=== PATIENT | male | born 1985 | race Caucasian/White ===

== ENCOUNTER 2021-06-24 08:51 | Inpatient (IN) ==
[2021-06-24 09:49] LABS: BASOPHILS % (AUTO) 0.4 % (0.2-1.0); EOSINOPHILS % (AUTO) 0.3 % (0.9-2.9); HEMATOCRIT 47.6 % (42.0-54.0); HEMOGLOBIN 16.5 g/dL (13.5-18.0); LYMPHOCYTES # (AUTO) 0.7 X10^3/uL (1.3-2.9); LYMPHOCYTES % (AUTO) 9.6 % (21.0-51.0); MEAN CORPUSCULAR HEMOGLOBIN 30.8 pg (27.0-34.0); MEAN CORPUSCULAR HGB CONC 34.7 g/dL (33.0-35.0); MEAN CORPUSCULAR VOLUME 88.6 fL (80.0-100.0); MEAN PLATELET VOLUME 7.5 fL (7.4-11.0); MONOCYTES # (AUTO) 0.7 x10^3/uL (0.3-0.8); MONOCYTES % (AUTO) 8.8 % (0.0-13.0); NEUTROPHILS # (AUTO) 6.3 x10^3/uL (2.2-4.8); NEUTROPHILS % (AUTO) 80.9 % (42.0-75.0); PLATELET COUNT 282 X10^3/uL (150.0-450.0); RED BLOOD COUNT 5.37 X10^6/uL (4.7-6.0); RED CELL DISTRIBUTION WIDTH 13.3 % (11.6-16.5); WHITE BLOOD COUNT 7.7 X10^3/uL (3.6-10.0)
--- NOTE | 2021-06-24 09:50 | RAD ---
HISTORYCOVID INFUSION, COUGH, FEVERSTUDYCHEST, PA/LAT ADULTCOMPARISONNoneTECHNIQUEAP view of the chestFINDINGSCardiac and mediastinal contours are within normal limits. Moderate bilateral airspace opacities worst in the peripheral mid to lower lungs. No definite pleural effusion or pneumothorax.IMPRESSIONModerate airspace opacities consistent with COVID 19.Electronically signed by: Ben Rubalcava (Jun 24, 2021 09:49:11)
[2021-06-24 09:55] LABS: BLOOD UREA NITROGEN 19 mg/dL (7-18); CALCIUM 9.2 mg/dL (8.5-10.1); CARBON DIOXIDE 29.5 mmol/L (21-32); CHLORIDE 100 mmol/L (98-107); CREATININE 1.09 mg/dL (0.70-1.30); SODIUM 139 mmol/L (136-145); eGFR NON BLACK RACES > 60 (>60)
[2021-06-24] MEDS ORDERED: BENADRYL INJ 50 MG VIAL IV ONE (11:03)
[2021-06-24] MEDS ORDERED: SOLU-Medrol 125 MG VIAL IVP ONE (11:03)
[2021-06-24] MEDS ORDERED: TYLENOL 325 MG TAB PO ONE (11:03)
[2021-06-24] MEDS ORDERED: REMDESIVIR 200 MG in NS 100 ML IV 140 ML IV ONE (11:03)
[2021-06-24] MEDS ORDERED: NS 250 ML IV 250 ML IV ONE (11:10)
[2021-06-24] MEDS ORDERED: REMDESIVIR IV ONE (11:10)
[2021-06-24 12:24] VITALS: BMI 27.2
[2021-06-24] MEDS ORDERED: PHARMACY CONSULT - IVERMECTIN XX SCH (16:36)
[2021-06-24] MEDS: BROVANA IN SCH ×2 (17:42→20:30)
[2021-06-24] MEDS: PULMICORT NEB TX 0.5 MG NEB SCH ×2 (17:42→20:30)
[2021-06-24 18:00] LABS: BASOPHILS % (AUTO) 0.2 % (0.2-1.0); HEMATOCRIT 43.7 % (42.0-54.0); HEMOGLOBIN 15.2 g/dL (13.5-18.0); LYMPHOCYTES # (AUTO) 0.4 X10^3/uL (1.3-2.9); LYMPHOCYTES % (AUTO) 10.9 % (21.0-51.0); MEAN CORPUSCULAR HEMOGLOBIN 30.8 pg (27.0-34.0); MEAN CORPUSCULAR HGB CONC 34.8 g/dL (33.0-35.0); MEAN CORPUSCULAR VOLUME 88.4 fL (80.0-100.0); MEAN PLATELET VOLUME 7.5 fL (7.4-11.0); MONOCYTES # (AUTO) 0.2 x10^3/uL (0.3-0.8); MONOCYTES % (AUTO) 4.8 % (0.0-13.0); NEUTROPHILS # (AUTO) 2.9 x10^3/uL (2.2-4.8); NEUTROPHILS % (AUTO) 84.1 % (42.0-75.0); PLATELET COUNT 271 X10^3/uL (150.0-450.0); RED BLOOD COUNT 4.94 X10^6/uL (4.7-6.0); RED CELL DISTRIBUTION WIDTH 13.1 % (11.6-16.5); WHITE BLOOD COUNT 3.4 X10^3/uL (3.6-10.0)
[2021-06-24 18:15] LABS: BLOOD UREA NITROGEN 17 mg/dL (7-18); CALCIUM 8.7 mg/dL (8.5-10.1); CARBON DIOXIDE 28.9 mmol/L (21-32); CHLORIDE 103 mmol/L (98-107); COR NA(FOR HYPERGLY) 141 mmol/L (136-145); CREATININE 0.89 mg/dL (0.70-1.30); SODIUM 140 mmol/L (136-145); eGFR NON BLACK RACES > 60 (>60)
[2021-06-24 19:52] LABS: ALANINE AMINOTRANSFERASE 26 Units/L (12-78); ALBUMIN 2.5 g/dL (3.4-5.0); ALKALINE PHOSPHATASE 51 Units/L (46-116); ASPARTATE AMINO TRANSFERASE 28 Units/L (15-37); COR CA(FOR HYPOALB) 9.9 mg/dL (8.5-10.1); TOTAL PROTEIN 7.5 g/dL (6.4-8.2)
[2021-06-24 19:57] LABS: ABG ALLEN TEST POS; ABG BASE EXCESS 7.1 mmol/L (-2.0-2.0); ABG HCO3 31.3 mmol/L (22-26)
[2021-06-24] MEDS ORDERED: NS 1000 ML 1,000 ML ONE (21:00)
[2021-06-24] MEDS: NS 1000 ML 1,000 ML IV SCH (21:12)
[2021-06-24] MEDS ORDERED: IVERMECTIN ONE (21:25)
[2021-06-24] MEDS ORDERED: TRICOR TAB 160 MG ONE (21:25)
[2021-06-24] MEDS ORDERED: VIBRAMYCIN PO ONE (21:25)
[2021-06-24] MEDS ORDERED: ZINC SULFATE ONE (21:25)
[2021-06-24] MEDS ORDERED: LOVENOX INJ 30 MG SYR SC ONE ×2 (21:26→22:03)
[2021-06-24] MEDS ORDERED: ZOSYN VIAL 3.375 GRAMS IV ONE (21:26)
[2021-06-24] MEDS ORDERED: SOLU-Medrol 40 MG VIAL ONE (21:26)
[2021-06-24] MEDS ORDERED: PEPCID TAB 40 MG ONE (21:26)
[2021-06-24] MEDS ORDERED: NS 100 ML IV + SPIKE MINIBAG* 100 ML IV ONE (21:27)
[2021-06-24] MEDS ORDERED: ASCORBIC ACID INJ MULTI-DOSE VIAL IV ONE (21:27)
[2021-06-24] MEDS: VITAMIN D (1.25MG) PO SCH (22:00)
[2021-06-24] MEDS: VIBRAMYCIN PO SCH (22:00)
[2021-06-24] MEDS: IVERMECTIN PO SCH (22:00)
[2021-06-24] MEDS: ZINC SULFATE PO SCH (22:00)
[2021-06-24] MEDS: PEPCID TAB 40 MG PO SCH (22:01)
[2021-06-24] MEDS: VITAMIN A PO SCH (22:01)
[2021-06-24] MEDS: LOVENOX INJ 30 MG SYR SC SCH (22:14)
[2021-06-24] MEDS: ASCORBIC ACID INJ MULTI-DOSE VIAL 1,500 MG in NS 100 ML IV 100 ML IV SCH (22:14)
[2021-06-24 22:15] LABS: ALANINE AMINOTRANSFERASE 28 Units/L (12-78); ALKALINE PHOSPHATASE 52 Units/L (46-116); ASPARTATE AMINO TRANSFERASE 36 Units/L (15-37); TOTAL PROTEIN 8.2 g/dL (6.4-8.2)
[2021-06-24] MEDS: SOLU-Medrol 40 MG VIAL IVP SCH (22:15)
[2021-06-24] MEDS: TRICOR TAB 160 MG PO SCH (22:16)
[2021-06-24] MEDS: ZOSYN VIAL 3.375 GRAMS 3.375 G in NS 100 ML IV + SPIKE MINIBAG* 100 ML IV SCH (23:00)
[2021-06-25] MEDS: ASCORBIC ACID INJ MULTI-DOSE VIAL 1,500 MG in NS 100 ML IV 100 ML IV SCH ×5 (04:16→22:01)
[2021-06-25] MEDS: VIBRAMYCIN PO SCH ×2 (05:47→22:01)
[2021-06-25] MEDS ORDERED: ZOSYN VIAL 3.375 GRAMS IV ONE ×3 (05:49→20:21)
[2021-06-25] MEDS ORDERED: NS 100 ML IV + SPIKE MINIBAG* 100 ML IV ONE ×3 (05:50→20:21)
[2021-06-25] MEDS: ZOSYN VIAL 3.375 GRAMS 3.375 G in NS 100 ML IV + SPIKE MINIBAG* 100 ML IV SCH ×3 (06:12→22:03)
[2021-06-25] MEDS: SOLU-Medrol 40 MG VIAL IVP SCH ×3 (06:12→22:03)
[2021-06-25] MEDS ORDERED: PEPCID TAB 40 MG ONE ×2 (08:18→20:21)
[2021-06-25] MEDS ORDERED: TRICOR TAB 160 MG ONE (08:18)
[2021-06-25] MEDS ORDERED: IVERMECTIN ONE ×2 (08:18→08:29)
[2021-06-25] MEDS ORDERED: ZINC SULFATE ONE ×2 (08:18→20:21)
--- NOTE | 2021-06-25 08:18 | RAD ---
HISTORYCOVID PNEUMONIASTUDYCHEST, 1 [id number]/2021FINDINGSStable cardiomediastinal silhouette. Interval worsening in bilateral multifocal patchy opacities. No sizable effusion or visible pneumothorax. No acute osseous finding.IMPRESSIONWorsening opacities.Electronically signed by: Luis F Bella (Jun 25, 2021 08:16:02)
[2021-06-25] MEDS ORDERED: REMDESIVIR IV ONE (08:19)
[2021-06-25] MEDS ORDERED: LOVENOX INJ 30 MG SYR SC ONE ×2 (08:19→20:21)
[2021-06-25] MEDS ORDERED: NS 100 ML IV 100 ML ONE (08:20)
[2021-06-25] MEDS ORDERED: NS 250 ML IV 250 ML IV ONE (08:20)
[2021-06-25] MEDS ORDERED: ASCORBIC ACID INJ MULTI-DOSE VIAL IV ONE ×2 (08:20→13:11)
[2021-06-25] MEDS: LOVENOX INJ 30 MG SYR SC SCH ×2 (08:23→22:02)
[2021-06-25] MEDS: PEPCID TAB 40 MG PO SCH ×2 (08:23→22:02)
[2021-06-25] MEDS: REMDESIVIR 100 MG in NS 250 ML IV 250 ML IV SCH (08:24)
[2021-06-25] MEDS: ZINC SULFATE PO SCH ×2 (08:24→22:02)
[2021-06-25] MEDS: VITAMIN A PO SCH (08:27)
[2021-06-25] MEDS: TRICOR TAB 160 MG PO SCH (08:27)
[2021-06-25] MEDS: VITAMIN D (1.25MG) PO SCH (08:30)
[2021-06-25] MEDS: IVERMECTIN PO SCH (08:30)
--- NOTE | 2021-06-25 08:30 | DR.H&P ---
H&P History & Physical for Day of: H&P Date: 06/24/21 Chief Complaint Chief Complaint: SOB/Fatigue/Fever Allergies Allergies Allergy/AdvReac Type Severity Reaction Status Date / Time No Known Drug Allergies Allergy Verified 06/24/21 13:51 History of Present Illness History of Present Illness: 35 yo wm with recent dx of Covid. Labs reveal a CRP of 275.1. He is not a candidate for Regeneco. Past Medical History Past Medical History: denies Alzheimers, Anemia, Angina, Anxiety, Arthritis, Asthma, Cirrhosis, CHF, COPD, Coronary Artery Disease, CVA, Dementia, Depression, Diabetes, Dialysis, Dyslipidemia, Migraines, GERD, Gout, Headaches, Hypertension, Hyperthyroidism, Hypothyroidism, Kidney Stones, Liver Disease, AL, PUD, Renal Disease, Schizophrenia, Seizures, Sleep Apnea, SVT and Ventricular Tachycardia Past Surgical History Surgical History: denies Unknown, No History, AAA Repair, Abdominal Surgery, Ang ioplasty/Stents, Appendectomy, Bowel Resection, , CABG/Valve Surgery, Carotid Endarterectomy, Cholecystectomy, Ectopic , [place] Surgery, Hysterectomy, Joint Replacement, Mastectomy, Neurosurgery, Organ Transplant, Ortho Surgery, Spleenectomy, Thyroidectomy, Tonsillectomy, TURP, Weight Loss Surgery, Lithotripsy and Other Family History Family Medical History: Cancer Social History Does patient currently use any type of tobacco product: No Have you used tobacco products in the last 12 months: No Type of Tobacco Use: None Does any household member use tobacco: No Alcohol Use: None Drug Use: None Medications Home Medications: No Known Drug Allergies Allergy (Verified 06/24/21 13:51) Labs Result Diagrams: 06/24/21 17:36 06/24/21 17:36 Labs: Laboratory WBC 3.4 X10^3/uL (3.6-10.0) L 06/24/21 17:36 RBC 4.94 X10^6/uL (4.7-6.0) 06/24/21 17:36 Hgb 15.2 g/dL (13.5-18.0) 06/24/21 17:36 Hct 43.7 % (42.0-54.0) 06/24/21 17:36 MCV 88.4 fL (80.0-100.0) 06/24/21 17:36 MCH 30.8 pg (27.0-34.0) 06/24/21 17:36 MCHC 34.8 g/dL (33.0-35.0) 06/24/21 17:36 RDW 13.1 % (11.6-16.5) 06/24/21 17:36 Plt Count 271 X10^3/uL (150.0-450.0) 06/24/21 17:36 MPV 7.5 fL (7.4-11.0) 06/24/21 17:36 Neut % (Auto) 84.1 % (42.0-75.0) H 06/24/21 17:36 Lymph % (Auto) 10.9 % (21.0-51.0) L 06/24/21 17:36 [place] % (Auto) 4.8 % (0.0-13.0) 06/24/21 17:36 Eos % (Auto) 0.0 % (0.9-2.9) L 06/24/21 17:36 Baso % (Auto) 0.2 % (0.2-1.0) 06/24/21 17:36 Neut # (Auto) 2.9 x10^3/uL (2.2-4.8) 06/24/21 17:36 Lymph # (Auto) 0.4 X10^3/uL (1.3-2.9) L 06/24/21 17:36 [place] # (Auto) 0.2 x10^3/uL (0.3-0.8) L 06/24/21 17:36 Eos # (Auto) 0.0 x10^3/uL (0.0-0.2) 06/24/21 17:36 Baso # (Auto) 0.0 X10^3/uL (0.0-0.1) 06/24/21 17:36 Absolute Nucleated RBC 0.0 /100WBC 06/24/21 17:36 D-Dimer 1.18 ug/ml (0.0-0.57) H* 06/24/21 09:27 Sample Site Rrad 06/24/21 19:50 ABG pH 7.480 (7.35-7.45) H 06/24/21 19:50 ABG pCO2 42.0 mmHg (35.0-45.0) 06/24/21 19:50 ABG pO2 70.0 mmHg (80.0-100.0) L 06/24/21 19:50 ABG HCO3 31.3 mmol/L (22-26) H* 06/24/21 19:50 ABG O2 Saturation 95.0 % (90-100) 06/24/21 19:50 ABG Base Excess 7.1 mmol/L (-2.0-2.0) H 06/24/21 19:50 Dell Test Pos 06/24/21 19:50 A-a Gradient 106.0 mmHg 06/24/21 19:50 FiO2 32.0 06/24/21 19:50 Blood Gas Comments Minerva well mts/sk 06/24/21 19:50 Sodium 140 mmol/L (136-145) 06/24/21 17:36 Corrected Sodium 141 mmol/L (136-145) 06/24/21 17:36 Potassium 4.1 mmol/L (3.5-5.1) 06/24/21 17:36 Chloride 103 mmol/L (98-107) 06/24/21 17:36 Carbon Dioxide 28.9 mmol/L (21-32) 06/24/21 17:36 BUN 17 mg/dL (7-18) 06/24/21 17:36 Creatinine 0.89 mg/dL (0.70-1.30) 06/24/21 17:36 Est GFR (MDRD) Af Amer > 60 (>60) 06/24/21 17:36 Est GFR (MDRD) Non-Af > 60 (>60) 06/24/21 17:36 Glucose 127 mg/dL (65-99) H 06/24/21 17:36 Calcium 8.7 mg/dL (8.5-10.1) 06/24/21 17:36 Corrected Calcium 9.9 mg/dL (8.5-10.1) 06/24/21 17:36 Ferritin 1634 ng/mL (26-388) H 06/24/21 09:27 Total Bilirubin 0.40 mg/dL (0.2-1.0) 06/24/21 17:36 AST 28 Units/L (15-37) 06/24/21 17:36 ALT 26 Units/L (12-78) 06/24/21 17:36 Alkaline Phosphatase 51 Units/L (46-116) 06/24/21 17:36 Troponin I 0.00 ng/mL (0-1.5) 06/24/21 17:36 C-Reactive Protein 275.10 mg/L (0-3.0) H 06/24/21 09:27 B-Natriuretic Peptide 14.1 pg/mL (0-79) 06/24/21 09:27 Total Protein 7.5 g/dL (6.4-8.2) 06/24/21 17:36 Albumin 2.5 g/dL (3.4-5.0) L 06/24/21 17:36 Globulin 5.0 g/dL (2.5-4.5) H 06/24/21 17:36 Albumin/Globulin Ratio 0.5 Ratio (1.1-2.1) L 06/24/21 17:36 Review of Systems Constitutional: No Symptoms Reported Eyes: No Symptoms Reported ENT: No Symptoms Reported Respiratory: No Symptoms Reported Cardiovascular: No Symptoms Reported Gastrointestinal: No Symptoms Reported Genitourinary: No Symptoms Reported Musculoskeletal: No Symptoms Reported Skin: No Symptoms Reported Neurological: No Symptoms Reported Physical Exam Vital Signs: Temperature 98.4 F Pulse Rate [Right Brachial] 89 Pulse Rate 103 Respiratory Rate 20 Blood Pressure [Left Arm] 114/65 O2 Sat by Pulse Oximetry 93 Oriented: Normal Eyes: Normal Respiratory: Clear Throughout Cardiovascular: Normal : Normal Palpation: Normal Tenderness: Normal Skin: Normal Psychiatric: Normal Mood Description: Calm Affect: Normal Assessment/Plan (1) COVID: Status: Acute Plan: Remdesivir protocol. (2) 2019 novel coronavirus-infected pneumonia (NCIP): Status: Acute Plan: IV Zosysn. Recheck CBC and CRP in am. Review H&P Reviewed: Yes Patient was examined?: Yes
[2021-06-25 08:36] LABS: BASOPHILS # (AUTO) 0.1 X10^3/uL (0.0-0.1); BASOPHILS % (AUTO) 1.6 % (0.2-1.0); EOSINOPHILS % (AUTO) 0.1 % (0.9-2.9); HEMATOCRIT 42.9 % (42.0-54.0); HEMOGLOBIN 14.7 g/dL (13.5-18.0); LYMPHOCYTES # (AUTO) 0.3 X10^3/uL (1.3-2.9); LYMPHOCYTES % (AUTO) 6.4 % (21.0-51.0); MEAN CORPUSCULAR HEMOGLOBIN 30.6 pg (27.0-34.0); MEAN CORPUSCULAR HGB CONC 34.4 g/dL (33.0-35.0); MEAN CORPUSCULAR VOLUME 89.1 fL (80.0-100.0); MEAN PLATELET VOLUME 7.5 fL (7.4-11.0); MONOCYTES # (AUTO) 0.2 x10^3/uL (0.3-0.8); MONOCYTES % (AUTO) 3.2 % (0.0-13.0); NEUTROPHILS # (AUTO) 4.8 x10^3/uL (2.2-4.8); NEUTROPHILS % (AUTO) 88.7 % (42.0-75.0); PLATELET COUNT 295 X10^3/uL (150.0-450.0); RED BLOOD COUNT 4.82 X10^6/uL (4.7-6.0); RED CELL DISTRIBUTION WIDTH 13.2 % (11.6-16.5); WHITE BLOOD COUNT 5.4 X10^3/uL (3.6-10.0)
[2021-06-25 08:49] LABS: ALANINE AMINOTRANSFERASE 27 Units/L (12-78); ALBUMIN 2.3 g/dL (3.4-5.0); ALKALINE PHOSPHATASE 45 Units/L (46-116); ASPARTATE AMINO TRANSFERASE 17 Units/L (15-37); BLOOD UREA NITROGEN 17 mg/dL (7-18); CALCIUM 8.7 mg/dL (8.5-10.1); CARBON DIOXIDE 29.7 mmol/L (21-32); CHLORIDE 104 mmol/L (98-107); COR CA(FOR HYPOALB) 10.1 mg/dL (8.5-10.1); COR NA(FOR HYPERGLY) 145 mmol/L (136-145); CREATININE 0.98 mg/dL (0.70-1.30); SODIUM 142 mmol/L (136-145); eGFR NON BLACK RACES > 60 (>60)
[2021-06-25] MEDS: PULMICORT NEB TX 0.5 MG NEB SCH ×2 (09:30→21:32)
[2021-06-25] MEDS: BROVANA IN SCH ×2 (09:30→21:32)
[2021-06-25] MEDS ORDERED: SOLU-Medrol 40 MG VIAL ONE (13:11)
[2021-06-25] MEDS ORDERED: SOLU-Medrol 125 MG VIAL ONE (13:15)
[2021-06-25] MEDS: NS 1000 ML 1,000 ML IV SCH (19:49)
[2021-06-25] MEDS ORDERED: NS 100 ML IV 200 ML ONE (20:17)
[2021-06-25] MEDS ORDERED: VIBRAMYCIN PO ONE (20:21)
[2021-06-26] MEDS ORDERED: ASCORBIC ACID INJ MULTI-DOSE VIAL IV ONE ×4 (00:57→13:39)
[2021-06-26] MEDS: ASCORBIC ACID INJ MULTI-DOSE VIAL 1,500 MG in NS 100 ML IV 100 ML IV SCH ×4 (03:23→21:25)
[2021-06-26 05:15] LABS: BASOPHILS % (AUTO) 0.2 % (0.2-1.0); HEMATOCRIT 40.8 % (42.0-54.0); HEMOGLOBIN 13.7 g/dL (13.5-18.0); LYMPHOCYTES # (AUTO) 0.5 X10^3/uL (1.3-2.9); LYMPHOCYTES % (AUTO) 4.3 % (21.0-51.0); MEAN CORPUSCULAR HGB CONC 33.7 g/dL (33.0-35.0); MEAN PLATELET VOLUME 7.6 fL (7.4-11.0); MONOCYTES # (AUTO) 0.4 x10^3/uL (0.3-0.8); MONOCYTES % (AUTO) 3.5 % (0.0-13.0); NEUTROPHILS # (AUTO) 10.2 x10^3/uL (2.2-4.8); PLATELET COUNT 359 X10^3/uL (150.0-450.0); RED BLOOD COUNT 4.58 X10^6/uL (4.7-6.0); RED CELL DISTRIBUTION WIDTH 13.5 % (11.6-16.5); WHITE BLOOD COUNT 11.1 X10^3/uL (3.6-10.0)
[2021-06-26] MEDS ORDERED: VIBRAMYCIN PO ONE (05:20)
[2021-06-26] MEDS ORDERED: ZOSYN VIAL 3.375 GRAMS IV ONE ×2 (05:21→13:38)
[2021-06-26] MEDS ORDERED: SOLU-Medrol 125 MG VIAL ONE ×2 (05:21→13:38)
[2021-06-26] MEDS ORDERED: NS 100 ML IV + SPIKE MINIBAG* 100 ML IV ONE ×2 (05:21→13:38)
[2021-06-26 05:26] LABS: ALANINE AMINOTRANSFERASE 27 Units/L (12-78); ALBUMIN 2.3 g/dL (3.4-5.0); ALKALINE PHOSPHATASE 48 Units/L (46-116); ASPARTATE AMINO TRANSFERASE 17 Units/L (15-37); BLOOD UREA NITROGEN 18 mg/dL (7-18); CALCIUM 8.4 mg/dL (8.5-10.1); CARBON DIOXIDE 29.7 mmol/L (21-32); CHLORIDE 108 mmol/L (98-107); COR CA(FOR HYPOALB) 9.8 mg/dL (8.5-10.1); COR NA(FOR HYPERGLY) 147 mmol/L (136-145); CREATININE 1.09 mg/dL (0.70-1.30); SODIUM 146 mmol/L (136-145); TOTAL PROTEIN 6.5 g/dL (6.4-8.2); eGFR NON BLACK RACES > 60 (>60)
[2021-06-26] MEDS: SOLU-Medrol 40 MG VIAL IVP SCH ×3 (05:40→21:26)
[2021-06-26] MEDS: ZOSYN VIAL 3.375 GRAMS 3.375 G in NS 100 ML IV + SPIKE MINIBAG* 100 ML IV SCH ×3 (05:41→21:26)
[2021-06-26] MEDS: VIBRAMYCIN PO SCH ×2 (05:41→18:20)
[2021-06-26 05:42] LABS: PLATELET MORPHOLOGY COMMENT NORMAL (NORMAL)
--- NOTE | 2021-06-26 08:25 | PCM.PROG ---
Progress Note Progress Note for Day of Date of Exam: 06/26/21 Subjective Subjective: Feels better today. Breathing is better also. Past Medical Family Social History Past Med/Fam/Surg Hx: No changes since H&P Allergies: Allergies No Known Drug Allergies Allergy (Verified 06/24/21 13:51) Review of Systems ROS: No change since H&P Vital Signs and I&O's Vital Signs: Temperature 98.2 F Pulse Rate [Right Brachial] 74 Pulse Rate 106 Respiratory Rate 16 Blood Pressure [Left Arm] 123/59 O2 Sat by Pulse Oximetry 91 Intake and Output: Intake & Output 06/23/21 06/24/21 06/25/21 06/26/21 11:59 11:59 11:59 11:59 Intake Total 1075 / 1075 1764 / 1764 Output Total 1650 / 1650 Balance 1075 / 1075 114 / 114 Physical Exam Oriented: Normal Eyes: Normal Respiratory: Normal Cardiovascular: Normal : Normal Tenderness: Normal Skin: Normal Psychiatric: Normal Mood Description: Calm Affect: Normal Speech Pattern: Clear and Appropriate Laboratory and Diagnostics Result Diagrams: 06/26/21 04:40 06/26/21 04:40 Labs: Laboratory WBC 11.1 X10^3/uL (3.6-10.0) H 06/26/21 04:40 RBC 4.58 X10^6/uL (4.7-6.0) L 06/26/21 04:40 Hgb 13.7 g/dL (13.5-18.0) 06/26/21 04:40 Hct 40.8 % (42.0-54.0) L 06/26/21 04:40 MCV 89.0 fL (80.0-100.0) 06/26/21 04:40 MCH 30.0 pg (27.0-34.0) 06/26/21 04:40 MCHC 33.7 g/dL (33.0-35.0) 06/26/21 04:40 RDW 13.5 % (11.6-16.5) 06/26/21 04:40 Plt Count 359 X10^3/uL (150.0-450.0) 06/26/21 04:40 Plt Count Comment Adequate (ADEQUATE) 06/26/21 04:40 MPV 7.6 fL (7.4-11.0) 06/26/21 04:40 Neut % (Auto) 92.0 % (42.0-75.0) H 06/26/21 04:40 Lymph % (Auto) 4.3 % (21.0-51.0) L 06/26/21 04:40 [place] % (Auto) 3.5 % (0.0-13.0) 06/26/21 04:40 Eos % (Auto) 0.0 % (0.9-2.9) L 06/26/21 04:40 Baso % (Auto) 0.2 % (0.2-1.0) 06/26/21 04:40 Neut # (Auto) 10.2 x10^3/uL (2.2-4.8) H 06/26/21 04:40 Lymph # (Auto) 0.5 X10^3/uL (1.3-2.9) L 06/26/21 04:40 [place] # (Auto) 0.4 x10^3/uL (0.3-0.8) 06/26/21 04:40 Eos # (Auto) 0.0 x10^3/uL (0.0-0.2) 06/26/21 04:40 Baso # (Auto) 0.0 X10^3/uL (0.0-0.1) 06/26/21 04:40 Absolute Nucleated RBC 0.0 /100WBC 06/26/21 04:40 Total Counted 100 06/26/21 04:40 Neutrophils % (Manual) 91 % (39-76) H 06/26/21 04:40 Lymphocytes % (Manual) 5 % (13-43) L 06/26/21 04:40 Monocytes % (Manual) 4 % (4-9) 06/26/21 04:40 Plt Morphology Comment Normal (NORMAL) 06/26/21 04:40 RBC Morphology Normal (NORMAL) 06/26/21 04:40 D-Dimer 1.18 ug/ml (0.0-0.57) H* 06/24/21 09:27 Sample Site Rrad 06/24/21 19:50 ABG pH 7.480 (7.35-7.45) H 06/24/21 19:50 ABG pCO2 42.0 mmHg (35.0-45.0) 06/24/21 19:50 ABG pO2 70.0 mmHg (80.0-100.0) L 06/24/21 19:50 ABG HCO3 31.3 mmol/L (22-26) H* 06/24/21 19:50 ABG O2 Saturation 95.0 % (90-100) 06/24/21 19:50 ABG Base Excess 7.1 mmol/L (-2.0-2.0) H 06/24/21 19:50 Dell Test Pos 06/24/21 19:50 A-a Gradient 106.0 mmHg 06/24/21 19:50 FiO2 32.0 06/24/21 19:50 Blood Gas Comments Minerva well mts/sk 06/24/21 19:50 Sodium 146 mmol/L (136-145) H 06/26/21 04:40 Corrected Sodium 147 mmol/L (136-145) H 06/26/21 04:40 Potassium 3.7 mmol/L (3.5-5.1) 06/26/21 04:40 Chloride 108 mmol/L (98-107) H 06/26/21 04:40 Carbon Dioxide 29.7 mmol/L (21-32) 06/26/21 04:40 BUN 18 mg/dL (7-18) 06/26/21 04:40 Creatinine 1.09 mg/dL (0.70-1.30) 06/26/21 04:40 Est GFR (MDRD) Af Amer > 60 (>60) 06/26/21 04:40 Est GFR (MDRD) Non-Af > 60 (>60) 06/26/21 04:40 Glucose 149 mg/dL (65-99) H 06/26/21 04:40 Calcium 8.4 mg/dL (8.5-10.1) L 06/26/21 04:40 Corrected Calcium 9.8 mg/dL (8.5-10.1) 06/26/21 04:40 Ferritin 1634 ng/mL (26-388) H 06/24/21 09:27 Total Bilirubin 0.30 mg/dL (0.2-1.0) 06/26/21 04:40 AST 17 Units/L (15-37) 06/26/21 04:40 ALT 27 Units/L (12-78) 06/26/21 04:40 Alkaline Phosphatase 48 Units/L (46-116) 06/26/21 04:40 Troponin I 0.00 ng/mL (0-1.5) 06/24/21 17:36 C-Reactive Protein 204.70 mg/L (0-3.0) H 06/25/21 08:20 B-Natriuretic Peptide 14.1 pg/mL (0-79) 06/24/21 09:27 Total Protein 6.5 g/dL (6.4-8.2) 06/26/21 04:40 Albumin 2.3 g/dL (3.4-5.0) L 06/26/21 04:40 Globulin 4.2 g/dL (2.5-4.5) 06/26/21 04:40 Albumin/Globulin Ratio 0.5 Ratio (1.1-2.1) L 06/26/21 04:40 Radiology Reviewed: Yes ST: Nonsp Plan (1) COVID: Status: Acute Plan: Remdesivir protocol. Pt. to recieve 3rd dose of Remdesivir today. (2) 2019 novel coronavirus-infected pneumonia (NCIP): Status: Acute Plan: IV Zosysn. Recheck CBC and CRP in am. Will add IV Azithromycin today.
[2021-06-26] MEDS ORDERED: ~Z-PAK 5 DAY (ZITHROMAX) PO ONE (08:30)
[2021-06-26] MEDS ORDERED: PEPCID TAB 40 MG ONE (08:49)
[2021-06-26] MEDS ORDERED: TRICOR TAB 160 MG ONE (08:49)
[2021-06-26] MEDS ORDERED: ZINC SULFATE ONE (08:49)
[2021-06-26] MEDS ORDERED: IVERMECTIN ONE (08:49)
[2021-06-26] MEDS ORDERED: REMDESIVIR IV ONE (08:50)
[2021-06-26] MEDS ORDERED: LOVENOX INJ 30 MG SYR SC ONE (08:50)
[2021-06-26] MEDS ORDERED: NS 250 ML IV 250 ML IV ONE (08:51)
[2021-06-26] MEDS: LOVENOX INJ 30 MG SYR SC SCH ×2 (08:56→21:45)
[2021-06-26] MEDS: IVERMECTIN PO SCH (08:57)
[2021-06-26] MEDS: TRICOR TAB 160 MG PO SCH (08:58)
[2021-06-26] MEDS: VITAMIN A PO SCH (08:58)
[2021-06-26] MEDS: ZINC SULFATE PO SCH ×2 (08:58→21:26)
[2021-06-26] MEDS: PEPCID TAB 40 MG PO SCH ×2 (08:58→21:26)
[2021-06-26] MEDS: REMDESIVIR 100 MG in NS 250 ML IV 250 ML IV SCH (08:59)
[2021-06-26] MEDS ORDERED: ZITHROMAX TAB 250 MG PO NR (09:00)
[2021-06-26] MEDS ORDERED: VITAMIN D3 125 mcg (5,000 UNITS) ONE (09:01)
[2021-06-26] MEDS: VITAMIN D3 125 mcg (5,000 UNITS) PO SCH (09:04)
[2021-06-26] MEDS ORDERED: ZITHROMAX TAB 250 MG PO ONE (09:05)
[2021-06-26] MEDS ORDERED: NS 50 ML IV 50 ML IV ONE ×2 (09:11→13:38)
[2021-06-26] MEDS: PULMICORT NEB TX 0.5 MG NEB SCH ×2 (09:26→21:00)
[2021-06-26] MEDS: BROVANA IN SCH ×2 (09:26→21:00)
[2021-06-26] MEDS: NS 1000 ML 1,000 ML IV SCH (17:16)
[2021-06-27] MEDS: ASCORBIC ACID INJ MULTI-DOSE VIAL 1,500 MG in NS 100 ML IV 100 ML IV SCH ×4 (03:15→20:59)
[2021-06-27] MEDS: SOLU-Medrol 40 MG VIAL IVP SCH ×3 (05:27→21:01)
[2021-06-27] MEDS: VIBRAMYCIN PO SCH ×2 (05:28→21:12)
[2021-06-27] MEDS: ZOSYN VIAL 3.375 GRAMS 3.375 G in NS 100 ML IV + SPIKE MINIBAG* 100 ML IV SCH ×3 (05:28→21:00)
[2021-06-27 06:15] LABS: BASOPHILS % (AUTO) 0.1 % (0.2-1.0); HEMATOCRIT 40.9 % (42.0-54.0); HEMOGLOBIN 14.3 g/dL (13.5-18.0); LYMPHOCYTES # (AUTO) 0.6 X10^3/uL (1.3-2.9); LYMPHOCYTES % (AUTO) 5.9 % (21.0-51.0); MEAN CORPUSCULAR HEMOGLOBIN 30.8 pg (27.0-34.0); MEAN CORPUSCULAR HGB CONC 34.9 g/dL (33.0-35.0); MEAN CORPUSCULAR VOLUME 88.4 fL (80.0-100.0); MEAN PLATELET VOLUME 7.5 fL (7.4-11.0); MONOCYTES # (AUTO) 0.5 x10^3/uL (0.3-0.8); MONOCYTES % (AUTO) 4.6 % (0.0-13.0); NEUTROPHILS # (AUTO) 9.8 x10^3/uL (2.2-4.8); NEUTROPHILS % (AUTO) 89.4 % (42.0-75.0); PLATELET COUNT 354 X10^3/uL (150.0-450.0); RED BLOOD COUNT 4.63 X10^6/uL (4.7-6.0); RED CELL DISTRIBUTION WIDTH 13.4 % (11.6-16.5); WHITE BLOOD COUNT 10.9 X10^3/uL (3.6-10.0)
--- NOTE | 2021-06-27 06:16 | RAD ---
HISTORYCOVID PNEUMONIA Relevant Clinical InformationSTUDYCHEST, 1 [id number]/18/2021FINDINGSThe trachea is midline. The cardiac silhouette is unremarkable. Bilateral multifocal parenchymal opacities unchanged. No pneumothorax. The bony thorax is unremarkable.IMPRESSIONBilateral multifocal parenchymal opacities; no significant change from 06/25/2021lectronically signed by: Justino Willis (Jun 27, 2021 06:14:13)
[2021-06-27 06:30] LABS: BLOOD UREA NITROGEN 17 mg/dL (7-18); CALCIUM 8.6 mg/dL (8.5-10.1); CHLORIDE 107 mmol/L (98-107); COR NA(FOR HYPERGLY) 145 mmol/L (136-145); CREATININE 0.93 mg/dL (0.70-1.30); SODIUM 144 mmol/L (136-145); eGFR NON BLACK RACES > 60 (>60)
[2021-06-27 06:45] LABS: CARBON DIOXIDE 28.8 mmol/L (21-32)
--- NOTE | 2021-06-27 08:19 | PCM.DCPLAN ---
DISCHARGE SUMMARY Admission Date Date of Admission: 06/24/21 Discharge Date Discharge Date: 06/27/21 Admission Diagnoses (1) COVID: Status: Acute (2) 2019 novel coronavirus-infected pneumonia (NCIP): Status: Acute (3) Hypoxia: Status: Acute Discharge Diagnoses Discharge Diagnosis: Hypoxia Discharge Medications Discharge Medications: Prescriptions: Hospital Course Vital Signs: Temperature 98.3 F Pulse Rate [Right Brachial] 56 Pulse Rate 81 Respiratory Rate 18 Blood Pressure [Left Arm] 122/83 O2 Sat by Pulse Oximetry 95 Latest Lab Results: Laboratory Last Values WBC 10.9 X10^3/uL (3.6-10.0) H 06/27/21 05:20 RBC 4.63 X10^6/uL (4.7-6.0) L 06/27/21 05:20 Hgb 14.3 g/dL (13.5-18.0) 06/27/21 05:20 Hct 40.9 % (42.0-54.0) L 06/27/21 05:20 MCV 88.4 fL (80.0-100.0) 06/27/21 05:20 MCH 30.8 pg (27.0-34.0) 06/27/21 05:20 MCHC 34.9 g/dL (33.0-35.0) 06/27/21 05:20 RDW 13.4 % (11.6-16.5) 06/27/21 05:20 Plt Count 354 X10^3/uL (150.0-450.0) 06/27/21 05:20 Plt Count Comment Adequate (ADEQUATE) 06/26/21 04:40 MPV 7.5 fL (7.4-11.0) 06/27/21 05:20 Neut % (Auto) 89.4 % (42.0-75.0) H 06/27/21 05:20 Lymph % (Auto) 5.9 % (21.0-51.0) L 06/27/21 05:20 [place] % (Auto) 4.6 % (0.0-13.0) 06/27/21 05:20 Eos % (Auto) 0.0 % (0.9-2.9) L 06/27/21 05:20 Baso % (Auto) 0.1 % (0.2-1.0) L 06/27/21 05:20 Neut # (Auto) 9.8 x10^3/uL (2.2-4.8) H 06/27/21 05:20 Lymph # (Auto) 0.6 X10^3/uL (1.3-2.9) L 06/27/21 05:20 [place] # (Auto) 0.5 x10^3/uL (0.3-0.8) 06/27/21 05:20 Eos # (Auto) 0.0 x10^3/uL (0.0-0.2) 06/27/21 05:20 Baso # (Auto) 0.0 X10^3/uL (0.0-0.1) 06/27/21 05:20 Absolute Nucleated RBC 0.0 /100WBC 06/27/21 05:20 Total Counted 100 06/26/21 04:40 Neutrophils % (Manual) 91 % (39-76) H 06/26/21 04:40 Lymphocytes % (Manual) 5 % (13-43) L 06/26/21 04:40 Monocytes % (Manual) 4 % (4-9) 06/26/21 04:40 Plt Morphology Comment Normal (NORMAL) 06/26/21 04:40 RBC Morphology Normal (NORMAL) 06/26/21 04:40 D-Dimer 1.18 ug/ml (0.0-0.57) H* 06/24/21 09:27 Sample Site Rrad 06/24/21 19:50 ABG pH 7.480 (7.35-7.45) H 06/24/21 19:50 ABG pCO2 42.0 mmHg (35.0-45.0) 06/24/21 19:50 ABG pO2 70.0 mmHg (80.0-100.0) L 06/24/21 19:50 ABG HCO3 31.3 mmol/L (22-26) H* 06/24/21 19:50 ABG O2 Saturation 95.0 % (90-100) 06/24/21 19:50 ABG Base Excess 7.1 mmol/L (-2.0-2.0) H 06/24/21 19:50 Dell Test Pos 06/24/21 19:50 A-a Gradient 106.0 mmHg 06/24/21 19:50 FiO2 32.0 06/24/21 19:50 Blood Gas Comments Minerva well mts/sk 06/24/21 19:50 Sodium 144 mmol/L (136-145) 06/27/21 05:20 Corrected Sodium 145 mmol/L (136-145) 06/27/21 05:20 Potassium 4.0 mmol/L (3.5-5.1) 06/27/21 05:20 Chloride 107 mmol/L (98-107) 06/27/21 05:20 Carbon Dioxide 28.8 mmol/L (21-32) 06/27/21 05:20 BUN 17 mg/dL (7-18) 06/27/21 05:20 Creatinine 0.93 mg/dL (0.70-1.30) 06/27/21 05:20 Est GFR (MDRD) Af Amer > 60 (>60) 06/27/21 05:20 Est GFR (MDRD) Non-Af > 60 (>60) 06/27/21 05:20 Glucose 129 mg/dL (65-99) H 06/27/21 05:20 Calcium 8.6 mg/dL (8.5-10.1) 06/27/21 05:20 Corrected Calcium 9.8 mg/dL (8.5-10.1) 06/26/21 04:40 Ferritin 1634 ng/mL (26-388) H 06/24/21 09:27 Total Bilirubin 0.30 mg/dL (0.2-1.0) 06/26/21 04:40 AST 17 Units/L (15-37) 06/26/21 04:40 ALT 27 Units/L (12-78) 06/26/21 04:40 Alkaline Phosphatase 48 Units/L (46-116) 06/26/21 04:40 Troponin I 0.00 ng/mL (0-1.5) 06/24/21 17:36 C-Reactive Protein 38.10 mg/L (0-3.0) H 06/27/21 05:20 B-Natriuretic Peptide 14.1 pg/mL (0-79) 06/24/21 09:27 Total Protein 6.5 g/dL (6.4-8.2) 06/26/21 04:40 Albumin 2.3 g/dL (3.4-5.0) L 06/26/21 04:40 Globulin 4.2 g/dL (2.5-4.5) 06/26/21 04:40 Albumin/Globulin Ratio 0.5 Ratio (1.1-2.1) L 06/26/21 04:40 Hospital Course: Patient improved daily with IV Remdesivir and antibiotics.
[2021-06-27] MEDS: PULMICORT NEB TX 0.5 MG NEB SCH ×2 (08:50→21:00)
[2021-06-27] MEDS: BROVANA IN SCH ×2 (08:55→21:00)
[2021-06-27] MEDS: ZITHROMAX TAB 250 MG PO SCH (09:06)
[2021-06-27] MEDS: MILK OF MAGNESIA PO SCH (09:06)
[2021-06-27] MEDS: PEPCID TAB 40 MG PO SCH ×2 (09:06→21:01)
[2021-06-27] MEDS: IVERMECTIN PO SCH (09:07)
[2021-06-27] MEDS: TRICOR TAB 160 MG PO SCH (09:08)
[2021-06-27] MEDS: VITAMIN D3 125 mcg (5,000 UNITS) PO SCH (09:08)
[2021-06-27] MEDS: REMDESIVIR 100 MG in NS 250 ML IV 250 ML IV SCH (09:09)
[2021-06-27] MEDS: LOVENOX INJ 30 MG SYR SC SCH ×2 (09:10→21:08)
[2021-06-27] MEDS: ZINC SULFATE PO SCH ×2 (10:43→21:01)
[2021-06-27] MEDS: VITAMIN A PO SCH (10:43)
[2021-06-27] MEDS ORDERED: ROBITUSSIN DM PO PRN (14:41)
[2021-06-27] MEDS: COLACE CAP 100 MG PO SCH (21:00)
[2021-06-27] MEDS: NS 1000 ML 1,000 ML IV SCH (21:12)
[2021-06-28] MEDS: ASCORBIC ACID INJ MULTI-DOSE VIAL 1,500 MG in NS 100 ML IV 100 ML IV SCH ×3 (02:17→20:29)
[2021-06-28] MEDS: ZOSYN VIAL 3.375 GRAMS 3.375 G in NS 100 ML IV + SPIKE MINIBAG* 100 ML IV SCH ×3 (05:51→22:02)
[2021-06-28] MEDS: SOLU-Medrol 40 MG VIAL IVP SCH ×3 (05:52→22:03)
[2021-06-28] MEDS: VIBRAMYCIN PO SCH (05:59)
--- NOTE | 2021-06-28 08:32 | PCM.PROG ---
Progress Note Progress Note for Day of Date of Exam: 06/28/21 Subjective Subjective: Feels better today. Breathing is better also. Past Medical Family Social History Past Med/Fam/Surg Hx: No changes since H&P and Changes noted (describe) Allergies: Allergies No Known Drug Allergies Allergy (Verified 06/24/21 13:51) Review of Systems ROS: No change since H&P Vital Signs and I&O's Vital Signs: Temperature 98.6 F Pulse Rate [Right Brachial] 81 Pulse Rate 118 Respiratory Rate 18 Blood Pressure [Left Arm] 131/87 O2 Sat by Pulse Oximetry 95 Intake and Output: Intake & Output 06/25/21 06/26/21 06/27/21 06/28/21 11:59 11:59 11:59 11:59 Intake Total 1075 / 1075 1764 / 1764 2360 / 2360 3455 / 3455 Output Total 1650 / 1650 600 / 600 Balance 1075 / 1075 114 / 114 1760 / 1760 3455 / 3455 Physical Exam Oriented: Normal Eyes: Normal Respiratory: Normal Cardiovascular: Normal : Normal Tenderness: Normal Skin: Normal Psychiatric: Normal Mood Description: Calm Affect: Normal Speech Pattern: Clear and Appropriate Laboratory and Diagnostics Result Diagrams: 06/27/21 05:20 06/27/21 05:20 Labs: Laboratory WBC 10.9 X10^3/uL (3.6-10.0) H 06/27/21 05:20 RBC 4.63 X10^6/uL (4.7-6.0) L 06/27/21 05:20 Hgb 14.3 g/dL (13.5-18.0) 06/27/21 05:20 Hct 40.9 % (42.0-54.0) L 06/27/21 05:20 MCV 88.4 fL (80.0-100.0) 06/27/21 05:20 MCH 30.8 pg (27.0-34.0) 06/27/21 05:20 MCHC 34.9 g/dL (33.0-35.0) 06/27/21 05:20 RDW 13.4 % (11.6-16.5) 06/27/21 05:20 Plt Count 354 X10^3/uL (150.0-450.0) 06/27/21 05:20 Plt Count Comment Adequate (ADEQUATE) 06/26/21 04:40 MPV 7.5 fL (7.4-11.0) 06/27/21 05:20 Neut % (Auto) 89.4 % (42.0-75.0) H 06/27/21 05:20 Lymph % (Auto) 5.9 % (21.0-51.0) L 06/27/21 05:20 [place] % (Auto) 4.6 % (0.0-13.0) 06/27/21 05:20 Eos % (Auto) 0.0 % (0.9-2.9) L 06/27/21 05:20 Baso % (Auto) 0.1 % (0.2-1.0) L 06/27/21 05:20 Neut # (Auto) 9.8 x10^3/uL (2.2-4.8) H 06/27/21 05:20 Lymph # (Auto) 0.6 X10^3/uL (1.3-2.9) L 06/27/21 05:20 [place] # (Auto) 0.5 x10^3/uL (0.3-0.8) 06/27/21 05:20 Eos # (Auto) 0.0 x10^3/uL (0.0-0.2) 06/27/21 05:20 Baso # (Auto) 0.0 X10^3/uL (0.0-0.1) 06/27/21 05:20 Absolute Nucleated RBC 0.0 /100WBC 06/27/21 05:20 Total Counted 100 06/26/21 04:40 Neutrophils % (Manual) 91 % (39-76) H 06/26/21 04:40 Lymphocytes % (Manual) 5 % (13-43) L 06/26/21 04:40 Monocytes % (Manual) 4 % (4-9) 06/26/21 04:40 Plt Morphology Comment Normal (NORMAL) 06/26/21 04:40 RBC Morphology Normal (NORMAL) 06/26/21 04:40 D-Dimer 1.18 ug/ml (0.0-0.57) H* 06/24/21 09:27 Sample Site Rrad 06/24/21 19:50 ABG pH 7.480 (7.35-7.45) H 06/24/21 19:50 ABG pCO2 42.0 mmHg (35.0-45.0) 06/24/21 19:50 ABG pO2 70.0 mmHg (80.0-100.0) L 06/24/21 19:50 ABG HCO3 31.3 mmol/L (22-26) H* 06/24/21 19:50 ABG O2 Saturation 95.0 % (90-100) 06/24/21 19:50 ABG Base Excess 7.1 mmol/L (-2.0-2.0) H 06/24/21 19:50 Dell Test Pos 06/24/21 19:50 A-a Gradient 106.0 mmHg 06/24/21 19:50 FiO2 32.0 06/24/21 19:50 Blood Gas Comments Minerva well mts/sk 06/24/21 19:50 Sodium 144 mmol/L (136-145) 06/27/21 05:20 Corrected Sodium 145 mmol/L (136-145) 06/27/21 05:20 Potassium 4.0 mmol/L (3.5-5.1) 06/27/21 05:20 Chloride 107 mmol/L (98-107) 06/27/21 05:20 Carbon Dioxide 28.8 mmol/L (21-32) 06/27/21 05:20 BUN 17 mg/dL (7-18) 06/27/21 05:20 Creatinine 0.93 mg/dL (0.70-1.30) 06/27/21 05:20 Est GFR (MDRD) Af Amer > 60 (>60) 06/27/21 05:20 Est GFR (MDRD) Non-Af > 60 (>60) 06/27/21 05:20 Glucose 129 mg/dL (65-99) H 06/27/21 05:20 Calcium 8.6 mg/dL (8.5-10.1) 06/27/21 05:20 Corrected Calcium 9.8 mg/dL (8.5-10.1) 06/26/21 04:40 Ferritin 1634 ng/mL (26-388) H 06/24/21 09:27 Total Bilirubin 0.30 mg/dL (0.2-1.0) 06/26/21 04:40 AST 17 Units/L (15-37) 06/26/21 04:40 ALT 27 Units/L (12-78) 06/26/21 04:40 Alkaline Phosphatase 48 Units/L (46-116) 06/26/21 04:40 Troponin I 0.00 ng/mL (0-1.5) 06/24/21 17:36 C-Reactive Protein 38.10 mg/L (0-3.0) H 06/27/21 05:20 B-Natriuretic Peptide 14.1 pg/mL (0-79) 06/24/21 09:27 Total Protein 6.5 g/dL (6.4-8.2) 06/26/21 04:40 Albumin 2.3 g/dL (3.4-5.0) L 06/26/21 04:40 Globulin 4.2 g/dL (2.5-4.5) 06/26/21 04:40 Albumin/Globulin Ratio 0.5 Ratio (1.1-2.1) L 06/26/21 04:40 Radiology Reviewed: N/A Plan (1) COVID: Status: Acute Narrative Support Text: Improved over all but still hypoxic. On 4 L O2 Plan: Remdesivir protocol. Pt. to recieve 3rd dose of Remdesivir today. (2) 2019 novel coronavirus-infected pneumonia (NCIP): Status: Acute Plan: IV Zosysn. Recheck CBC and CRP in am. Will add IV Azithromycin today. (3) Hypoxia: Status: Acute
[2021-06-28] MEDS: PULMICORT NEB TX 0.5 MG NEB SCH ×2 (08:55→20:15)
[2021-06-28] MEDS: BROVANA IN SCH ×2 (08:55→20:15)
[2021-06-28] MEDS: MILK OF MAGNESIA PO SCH (09:04)
[2021-06-28] MEDS: IVERMECTIN PO SCH (09:04)
[2021-06-28] MEDS: ZINC SULFATE PO SCH ×2 (09:05→20:26)
[2021-06-28] MEDS: VITAMIN D3 125 mcg (5,000 UNITS) PO SCH (09:05)
[2021-06-28] MEDS: ZITHROMAX TAB 250 MG PO SCH (09:05)
[2021-06-28] MEDS: LOVENOX INJ 30 MG SYR SC SCH ×2 (09:06→20:30)
[2021-06-28] MEDS: PEPCID TAB 40 MG PO SCH ×2 (09:06→20:26)
[2021-06-28] MEDS: REMDESIVIR 100 MG in NS 250 ML IV 250 ML IV SCH (09:08)
[2021-06-28] MEDS: TRICOR TAB 160 MG PO SCH (09:08)
[2021-06-28] MEDS: VITAMIN A PO SCH (09:08)
[2021-06-28] MEDS: COLACE CAP 100 MG PO SCH (20:25)
[2021-06-28] MEDS: NS 1000 ML 1,000 ML IV SCH (20:27)
[2021-06-29] MEDS: ASCORBIC ACID INJ MULTI-DOSE VIAL 1,500 MG in NS 100 ML IV 100 ML IV SCH ×2 (03:04→10:34)
[2021-06-29] MEDS: ZOSYN VIAL 3.375 GRAMS 3.375 G in NS 100 ML IV + SPIKE MINIBAG* 100 ML IV SCH (05:04)
[2021-06-29] MEDS: SOLU-Medrol 40 MG VIAL IVP SCH (05:05)
[2021-06-29] MEDS: VIBRAMYCIN PO SCH (05:05)
[2021-06-29] MEDS: BROVANA IN SCH (09:00)
[2021-06-29] MEDS: PULMICORT NEB TX 0.5 MG NEB SCH (09:00)
--- NOTE | 2021-06-29 09:17 | PCM.PROG ---
Progress Note Progress Note for Day of Date of Exam: 06/29/21 Past Medical Family Social History Past Med/Fam/Surg Hx: No changes since H&P and Changes noted (describe) Allergies: Allergies No Known Drug Allergies Allergy (Verified 06/24/21 13:51) Review of Systems ROS: No change since H&P Vital Signs and I&O's Vital Signs: Temperature 97.9 F Pulse Rate [Right Brachial] 58 Pulse Rate 80 Respiratory Rate 18 Blood Pressure [Right Arm] 142/88 Blood Pressure [Left Arm] 135/73 O2 Sat by Pulse Oximetry 94 Intake and Output: Intake & Output 06/26/21 06/27/21 06/28/21 06/29/21 11:59 11:59 11:59 11:59 Intake Total 1764 / 1764 2360 / 2360 3455 / 3455 3971 / 3971 Output Total 1650 / 1650 600 / 600 Balance 114 / 114 1760 / 1760 3455 / 3455 3971 / 3971 Physical Exam Oriented: Normal Eyes: Normal Respiratory: Normal Cardiovascular: Normal : Normal Tenderness: Normal Skin: Normal Psychiatric: Normal Mood Description: Calm Affect: Normal Speech Pattern: Clear and Appropriate Laboratory and Diagnostics Result Diagrams: 06/27/21 05:20 06/27/21 05:20 Labs: Laboratory WBC 10.9 X10^3/uL (3.6-10.0) H 06/27/21 05:20 RBC 4.63 X10^6/uL (4.7-6.0) L 06/27/21 05:20 Hgb 14.3 g/dL (13.5-18.0) 06/27/21 05:20 Hct 40.9 % (42.0-54.0) L 06/27/21 05:20 MCV 88.4 fL (80.0-100.0) 06/27/21 05:20 MCH 30.8 pg (27.0-34.0) 06/27/21 05:20 MCHC 34.9 g/dL (33.0-35.0) 06/27/21 05:20 RDW 13.4 % (11.6-16.5) 06/27/21 05:20 Plt Count 354 X10^3/uL (150.0-450.0) 06/27/21 05:20 Plt Count Comment Adequate (ADEQUATE) 06/26/21 04:40 MPV 7.5 fL (7.4-11.0) 06/27/21 05:20 Neut % (Auto) 89.4 % (42.0-75.0) H 06/27/21 05:20 Lymph % (Auto) 5.9 % (21.0-51.0) L 06/27/21 05:20 Lewis % (Auto) 4.6 % (0.0-13.0) 06/27/21 05:20 Eos % (Auto) 0.0 % (0.9-2.9) L 06/27/21 05:20 Baso % (Auto) 0.1 % (0.2-1.0) L 06/27/21 05:20 Neut # (Auto) 9.8 x10^3/uL (2.2-4.8) H 06/27/21 05:20 Lymph # (Auto) 0.6 X10^3/uL (1.3-2.9) L 06/27/21 05:20 Lewis # (Auto) 0.5 x10^3/uL (0.3-0.8) 06/27/21 05:20 Eos # (Auto) 0.0 x10^3/uL (0.0-0.2) 06/27/21 05:20 Baso # (Auto) 0.0 X10^3/uL (0.0-0.1) 06/27/21 05:20 Absolute Nucleated RBC 0.0 /100WBC 06/27/21 05:20 Total Counted 100 06/26/21 04:40 Neutrophils % (Manual) 91 % (39-76) H 06/26/21 04:40 Lymphocytes % (Manual) 5 % (13-43) L 06/26/21 04:40 Monocytes % (Manual) 4 % (4-9) 06/26/21 04:40 Plt Morphology Comment Normal (NORMAL) 06/26/21 04:40 RBC Morphology Normal (NORMAL) 06/26/21 04:40 D-Dimer 1.18 ug/ml (0.0-0.57) H* 06/24/21 09:27 Sample Site Rrad 06/24/21 19:50 ABG pH 7.480 (7.35-7.45) H 06/24/21 19:50 ABG pCO2 42.0 mmHg (35.0-45.0) 06/24/21 19:50 ABG pO2 70.0 mmHg (80.0-100.0) L 06/24/21 19:50 ABG HCO3 31.3 mmol/L (22-26) H* 06/24/21 19:50 ABG O2 Saturation 95.0 % (90-100) 06/24/21 19:50 ABG Base Excess 7.1 mmol/L (-2.0-2.0) H 06/24/21 19:50 Dell Test Pos 06/24/21 19:50 A-a Gradient 106.0 mmHg 06/24/21 19:50 FiO2 32.0 06/24/21 19:50 Blood Gas Comments Minerva well mts/sk 06/24/21 19:50 Sodium 144 mmol/L (136-145) 06/27/21 05:20 Corrected Sodium 145 mmol/L (136-145) 06/27/21 05:20 Potassium 4.0 mmol/L (3.5-5.1) 06/27/21 05:20 Chloride 107 mmol/L (98-107) 06/27/21 05:20 Carbon Dioxide 28.8 mmol/L (21-32) 06/27/21 05:20 BUN 17 mg/dL (7-18) 06/27/21 05:20 Creatinine 0.93 mg/dL (0.70-1.30) 06/27/21 05:20 Est GFR (MDRD) Af Amer > 60 (>60) 06/27/21 05:20 Est GFR (MDRD) Non-Af > 60 (>60) 06/27/21 05:20 Glucose 129 mg/dL (65-99) H 06/27/21 05:20 Calcium 8.6 mg/dL (8.5-10.1) 06/27/21 05:20 Corrected Calcium 9.8 mg/dL (8.5-10.1) 06/26/21 04:40 Ferritin 1634 ng/mL (26-388) H 06/24/21 09:27 Total Bilirubin 0.30 mg/dL (0.2-1.0) 06/26/21 04:40 AST 17 Units/L (15-37) 06/26/21 04:40 ALT 27 Units/L (12-78) 06/26/21 04:40 Alkaline Phosphatase 48 Units/L (46-116) 06/26/21 04:40 Troponin I 0.00 ng/mL (0-1.5) 06/24/21 17:36 C-Reactive Protein 38.10 mg/L (0-3.0) H 06/27/21 05:20 B-Natriuretic Peptide 14.1 pg/mL (0-79) 06/24/21 09:27 Total Protein 6.5 g/dL (6.4-8.2) 06/26/21 04:40 Albumin 2.3 g/dL (3.4-5.0) L 06/26/21 04:40 Globulin 4.2 g/dL (2.5-4.5) 06/26/21 04:40 Albumin/Globulin Ratio 0.5 Ratio (1.1-2.1) L 06/26/21 04:40 Plan (1) COVID: Status: Acute Plan: Remdesivir protocol. Pt. to recieve 3rd dose of Remdesivir today. (2) 2019 novel coronavirus-infected pneumonia (NCIP): Status: Acute Plan: IV Zosysn. Recheck CBC and CRP in am. Will add IV Azithromycin today. (3) Hypoxia: Status: Acute
--- NOTE | 2021-06-29 09:22 | PCM.DCPLAN ---
DISCHARGE SUMMARY Admission Date Date of Admission: 06/24/21 Discharge Date Discharge Date: 06/29/21 Admission Diagnoses (1) COVID: Status: Acute (2) 2019 novel coronavirus-infected pneumonia (NCIP): Status: Acute (3) Hypoxia: Status: Acute Discharge Diagnoses Discharge Diagnosis: Covid Hypoxia Discharge Medications Discharge Medications: Home Medication List albuterol 90 mcg INHALATION Q6H 06/27/21 [History] arformoterol [Brovana] 15 mcg INHALATION BIDRESP 7 Days #28 ml 06/27/21 [Rx] azithromycin 250 mg PO DAILY #4 tab 06/27/21 [Rx] doxycycline hyclate 100 mg PO Q12H #14 cap 06/27/21 [Rx] levofloxacin [Levaquin] 500 mg PO DAILY 06/27/21 [History] Prescriptions: arformoterol [Brovana] CAMILLA,RUSSELL azithromycin CAMILLA,RUSSELL doxycycline hyclate CAMILLA,RUSSELL Hospital Course Vital Signs: Temperature 97.9 F Pulse Rate [Right Brachial] 58 Pulse Rate 80 Respiratory Rate 18 Blood Pressure [Right Arm] 142/88 Blood Pressure [Left Arm] 135/73 O2 Sat by Pulse Oximetry 94 Latest Lab Results: Laboratory Last Values WBC 10.9 X10^3/uL (3.6-10.0) H 06/27/21 05:20 RBC 4.63 X10^6/uL (4.7-6.0) L 06/27/21 05:20 Hgb 14.3 g/dL (13.5-18.0) 06/27/21 05:20 Hct 40.9 % (42.0-54.0) L 06/27/21 05:20 MCV 88.4 fL (80.0-100.0) 06/27/21 05:20 MCH 30.8 pg (27.0-34.0) 06/27/21 05:20 MCHC 34.9 g/dL (33.0-35.0) 06/27/21 05:20 RDW 13.4 % (11.6-16.5) 06/27/21 05:20 Plt Count 354 X10^3/uL (150.0-450.0) 06/27/21 05:20 Plt Count Comment Adequate (ADEQUATE) 06/26/21 04:40 MPV 7.5 fL (7.4-11.0) 06/27/21 05:20 Neut % (Auto) 89.4 % (42.0-75.0) H 06/27/21 05:20 Lymph % (Auto) 5.9 % (21.0-51.0) L 06/27/21 05:20 [place] % (Auto) 4.6 % (0.0-13.0) 06/27/21 05:20 Eos % (Auto) 0.0 % (0.9-2.9) L 06/27/21 05:20 Baso % (Auto) 0.1 % (0.2-1.0) L 06/27/21 05:20 Neut # (Auto) 9.8 x10^3/uL (2.2-4.8) H 06/27/21 05:20 Lymph # (Auto) 0.6 X10^3/uL (1.3-2.9) L 06/27/21 05:20 [place] # (Auto) 0.5 x10^3/uL (0.3-0.8) 06/27/21 05:20 Eos # (Auto) 0.0 x10^3/uL (0.0-0.2) 06/27/21 05:20 Baso # (Auto) 0.0 X10^3/uL (0.0-0.1) 06/27/21 05:20 Absolute Nucleated RBC 0.0 /100WBC 06/27/21 05:20 Total Counted 100 06/26/21 04:40 Neutrophils % (Manual) 91 % (39-76) H 06/26/21 04:40 Lymphocytes % (Manual) 5 % (13-43) L 06/26/21 04:40 Monocytes % (Manual) 4 % (4-9) 06/26/21 04:40 Plt Morphology Comment Normal (NORMAL) 06/26/21 04:40 RBC Morphology Normal (NORMAL) 06/26/21 04:40 D-Dimer 1.18 ug/ml (0.0-0.57) H* 06/24/21 09:27 Sample Site Rrad 06/24/21 19:50 ABG pH 7.480 (7.35-7.45) H 06/24/21 19:50 ABG pCO2 42.0 mmHg (35.0-45.0) 06/24/21 19:50 ABG pO2 70.0 mmHg (80.0-100.0) L 06/24/21 19:50 ABG HCO3 31.3 mmol/L (22-26) H* 06/24/21 19:50 ABG O2 Saturation 95.0 % (90-100) 06/24/21 19:50 ABG Base Excess 7.1 mmol/L (-2.0-2.0) H 06/24/21 19:50 Dell Test Pos 06/24/21 19:50 A-a Gradient 106.0 mmHg 06/24/21 19:50 FiO2 32.0 06/24/21 19:50 Blood Gas Comments [place] well mts/sk 06/24/21 19:50 Sodium 144 mmol/L (136-145) 06/27/21 05:20 Corrected Sodium 145 mmol/L (136-145) 06/27/21 05:20 Potassium 4.0 mmol/L (3.5-5.1) 06/27/21 05:20 Chloride 107 mmol/L (98-107) 06/27/21 05:20 Carbon Dioxide 28.8 mmol/L (21-32) 06/27/21 05:20 BUN 17 mg/dL (7-18) 06/27/21 05:20 Creatinine 0.93 mg/dL (0.70-1.30) 06/27/21 05:20 Est GFR (MDRD) Af Amer > 60 (>60) 06/27/21 05:20 Est GFR (MDRD) Non-Af > 60 (>60) 06/27/21 05:20 Glucose 129 mg/dL (65-99) H 06/27/21 05:20 Calcium 8.6 mg/dL (8.5-10.1) 06/27/21 05:20 Corrected Calcium 9.8 mg/dL (8.5-10.1) 06/26/21 04:40 Ferritin 1634 ng/mL (26-388) H 06/24/21 09:27 Total Bilirubin 0.30 mg/dL (0.2-1.0) 06/26/21 04:40 AST 17 Units/L (15-37) 06/26/21 04:40 ALT 27 Units/L (12-78) 06/26/21 04:40 Alkaline Phosphatase 48 Units/L (46-116) 06/26/21 04:40 Troponin I 0.00 ng/mL (0-1.5) 06/24/21 17:36 C-Reactive Protein 38.10 mg/L (0-3.0) H 06/27/21 05:20 B-Natriuretic Peptide 14.1 pg/mL (0-79) 06/24/21 09:27 Total Protein 6.5 g/dL (6.4-8.2) 06/26/21 04:40 Albumin 2.3 g/dL (3.4-5.0) L 06/26/21 04:40 Globulin 4.2 g/dL (2.5-4.5) 06/26/21 04:40 Albumin/Globulin Ratio 0.5 Ratio (1.1-2.1) L 06/26/21 04:40 Hospital Course: Patient improved daily with IV Remdesivir and antibiotics. Instructions Instructions: Hypoxemia Hypoxia Forms: Excuse From Work or School Precautions for COVID19 Patient Portal Social Distancing
[2021-06-29] MEDS: LOVENOX INJ 30 MG SYR SC SCH (10:05)
[2021-06-29] MEDS: REMDESIVIR 100 MG in NS 250 ML IV 250 ML IV SCH (10:07)
[2021-06-29] MEDS: VITAMIN D3 125 mcg (5,000 UNITS) PO SCH (10:09)
[2021-06-29] MEDS: ZITHROMAX TAB 250 MG PO SCH (10:09)
[2021-06-29] MEDS: ZINC SULFATE PO SCH (10:09)
[2021-06-29] MEDS: VITAMIN A PO SCH (10:10)
[2021-06-29] MEDS: MILK OF MAGNESIA PO SCH (10:11)
[2021-06-29] MEDS: TRICOR TAB 160 MG PO SCH (10:11)
[2021-06-29] MEDS: PEPCID TAB 40 MG PO SCH (10:11)
[2021-06-29 13:05] VITALS: BP 133/86
== END 2021-06-29 13:05 | disposition home or self-care (01) | DRG 177 ==
LOC: OUTPT REF 08:51 → OBS 14:02 → MED/SURG 06-26 17:41
PROVIDERS: ADMIT Family Medicine; ATTEND Family Medicine
DX: U07.1 COVID-19; R09.02 Hypoxemia; R79.89 Other specified abnormal findings of blood chemistry; J12.82 Pneumonia due to coronavirus disease 2019; R79.82 Elevated C-reactive protein (CRP)